=== PATIENT | male | born 1995 | race Caucasian/White ===

== ENCOUNTER 2019-06-15 14:19 | Outpatient (CLI) | payer OTHER ==
--- NOTE | 2019-06-15 14:53 | RAD ---
Exam:Right shoulder 2 HISTORY: Pain. COMPARISON: None FINDINGS: Glenohumeral joint space is preserved. No fractures or dislocation. Visualized clavicle, sc apula and ribs are unremarkable. There does lung parenchyma is unremarkable. IMPRESSION: No fracture or dislocation
== END 2019-06-15 14:20 | disposition home or self-care (01) ==
LOC: BICRAD 14:19
PROVIDERS: ATTEND Family Medicine
DX: M25.511 Pain in right shoulder (principal)